=== PATIENT | female | born 1995 | race American Indian/Alaskan Native ===

== ENCOUNTER 2018-08-13 18:38 | Emergency (ER) | payer SELFPAY ==
[2018-08-13 19:32] LABS: Bilirubin,Urine NEG (Negative); Blood,Urine NEG (Negative); Color,Urine Yellow (Yellow); Mucus,Urine FEW /HPF; Protein,Urine <15 mg/dL mg/dL (Negative); Urobilinogen,Urine < 2.0 mg/dL (<2.0); WBC,Urine < 1.0 /HPF (0.0-6.0)
[2018-08-13 19:47] LABS: HCG Qualitative,Urine Positive (Negative)
[2018-08-13 20:26] LABS: Basophils % (Auto) 0.5 % (0.0-1.8); Eosinophils # (Auto) 0.2 K/mm3 (0.0-0.4); Eosinophils % (Auto) 2.4 % (0.0-4.3); Hematocrit 42.4 % (30.3-42.9); Hemoglobin 14.3 gm/dl (10.1-14.3); Lymphocytes # (Auto) 3.9 K/mm3 (1.2-5.4); Lymphocytes % (Auto) 40.1 % (13.4-35.0); Mean Corpuscular HGB Conc 34 % (30-34); Mean Corpuscular Hemoglobin 30 pg (28-32); Mean Corpuscular Volume 88 fl (79-97); Platelet Count 227 K/mm3 (140-440); Red Blood Count 4.82 M/mm3 (3.65-5.03); Red Cell Distribution Width 13.6 % (13.2-15.2)
--- NOTE | 2018-08-13 20:34 | Emergency Department Report ---
HPI - General Chief Complaint: Abdominal Pain Time Seen by Provider: 08/13/18 19:58 - HPI HPI: 22-year-old female presents to the emergency department with complaint of a three-day history of some abdominal discomfort around the belly button that sometimes moves up towards the epigastrium. She denies any nausea, vomiting, fever, diarrhea, vaginal bleeding or discharge, dysuria. Patient also says that she has had some intermittent mild headaches and some breast sensitivity over this time. She has concern that she could be as she had her implant removed in May and since that time her periods have been irregular. The patient has a primary care physician and [facility] back in [place], where she is from, and she returns home next month. If she is , she will be . She has not taken anything for her symptoms prior to presentation. She denies any tobacco or illicit drug use or abuse. ED Past Medical Hx - Past Medical History Previous Medical History?: No - Surgical History Past Surgical History?: No - Social History Smoking Status: Never Smoker Substance Use Type: None - Medications Home Medications: Home Medications Medication Instructions Recorded Confirmed Last Taken Type Vit-Fe Fumar-FA [ 1 tab PO QDAY #30 tablet 08/13/18 Unknown Rx Vitamin] ED Review of Systems ROS: Stated complaint: ABDOMINAL/CHEST PAINS Other details as noted in HPI Comment: All other systems reviewed and negative Constitutional: denies: chills, fever Eyes: denies: eye pain, eye discharge, vision change ENT: denies: ear pain, throat pain Respiratory: denies: cough, shortness of breath, wheezing Cardiovascular: denies: palpitations, edema Gastrointestinal: abdominal pain. denies: vomiting, diarrhea Genitourinary: denies: urgency, dysuria, discharge Musculoskeletal: denies: back pain, joint swelling, arthralgia Skin: denies: rash, lesions Neurological: headache. denies: numbness Physical Exam - Physical Exam Vital Signs: Vital Signs 08/13/18 08/13/18 08/13/18 18:46 20:10 20:12 Temperature 99.3 F 98.8 F Pulse Rate 94 H 78 Respiratory 16 20 20 Rate Blood Pressure 138/83 Blood Pressure 119/75 [Right] O2 Sat by Pulse 100 100 100 Oximetry Physical Exam: GENERAL: The patient is well-developed well-nourished. HENT: Normocephalic. Atraumatic. Patient has moist mucous membranes. EYES: Extraocular motions are intact. Pupils equal reactive to light bilaterally. NECK: Supple. Trachea is midline. CHEST/LUNGS: Clear to auscultation. There is no respiratory distress noted. HEART/CARDIOVASCULAR: Regular. There is no tachycardia. There is no murmur. ABDOMEN: Abdomen is soft. Mild lower abdominal tenderness to palpation. No guarding. Patient has normal bowel sounds. There is no abdominal distention. SKIN: Skin is warm and dry. NEURO: The patient is awake, alert, and oriented. The patient is cooperative. The patient has no focal neurologic deficits. The patient has normal speech. MUSCULOSKELETAL: There is no tenderness or deformity. There is no limitation range of motion. There is no evidence of acute injury. ED Course Vital Signs 08/13/18 08/13/18 08/13/18 18:46 20:10 20:12 Temperature 99.3 F 98.8 F Pulse Rate 94 H 78 Respiratory 16 20 20 Rate Blood Pressure 138/83 Blood Pressure 119/75 [Right] O2 Sat by Pulse 100 100 100 Oximetry ED Medical Decision Making - Lab Data Result diagrams: 08/13/18 20:09 08/13/18 20:12 - Radiology Data Radiology results: report reviewed Transvaginal/obstetric ultrasound was read by radiology as an impression of a probable normal early intrauterine gestation at 5 weeks and 4 days. At this time, no pole or cardiac activity is detectable. Follow-up is recommended. - Medical Decision Making Patient presented with a few days of some lower abdominal pain. No vaginal bleeding, discharge, dysuria. Vital signs stable throughout her ED course. Patient had a suspicion that she could be as her implantable contraception was taken out a few months ago and she has had irregular periods since. The patient was in fact found to be on a qualitative urine test. I sent a quantitative beta hCG that came back about 7500. The rest of the patient's labs was unremarkable. A pelvic/prostatic ultrasound was done and came back showing a probable normal early intrauterine gestation at 5 weeks and 4 days but there was no detectable cardiac activity or pole at this time. I discussed all of the labs and imaging results with the patient. She was given referrals for [facility]. However if she is unable to get in there within a few days, she will return to the emergency department for a repeat hormone level and potentially a repeat ultrasound. She understands that if the beta hCG is decreasing, then this may be a sign of a potential miscarriage. If the hormone level is increasing, we can get a repeat ultrasound to see if there is a pole or cardiac activity and that the is progressing. She was started on vitamins. She will use Tylenol as necessary for discomfort. She understands not to use any other medications that are not improved or prescribed by a physician while she is . - Differential Diagnosis , UTI, miscarriage, fibroids, colitis Critical Care Time: No Critical care attestation.: If time is entered above; I have spent that time in minutes in the direct care of this critically ill patient, excluding procedure time. ED Disposition Clinical Impression: Abdominal pain Qualifiers: Abdominal location: generalized Qualified Code(s): R10.84 - Generalized abdominal pain Qualifiers: Weeks of gestation: less than 8 weeks Qualified Code(s): Z3A.01 - Less than 8 weeks gestation of Disposition: TO HOME OR SELFCARE Is pt being admited?: No Condition: Stable Instructions: (ED), Abdominal Pain (ED) Additional Instructions: Please follow up with an [facility] service or return to the emergency department in 2-3 days for a repeat hormone level and possibly a repeat ultrasound. Until that time, I am starting you on a vitamin. You can take Tylenol every 4 hours, using weight-based dosing, as needed for any fever or discomfort. Otherwise avoid any other medications that are not prescribed by a physician. Return to the emergency department sooner with any worsening of your symptoms, development of vaginal bleeding, or if any acute distress. Prescriptions: Vit-Fe Fumar-FA [ Vitamin] 1 tab PO QDAY #30 tablet Referrals: [facility] [Provider Group] - 2-3 Days [facility] [Provider Group] - 2-3 Days [facility] [Provider Group] - 2-3 Days Time of Disposition: 23:47
[2018-08-13 20:52] LABS: Alanine Aminotransferase 9 units/L (7-56); Albumin 4.2 g/dL (3.9-5); BUN/Creatinine Ratio 8; Blood Urea Nitrogen 5 mg/dL (7-17); Calcium 8.6 mg/dL (8.4-10.2); Hemolysis Index 7; Lipase 18 units/L (13-60)
--- NOTE | 2018-08-13 22:45 | Ultrasound Report ---
FINAL REPORT PROCEDURE: US OB < = 14 WEEKS FETUS TECHNIQUE: Real-time transabdominal sonography of the uterus, placenta, amniotic fluid, adnexa, and fetus was performed with image documentation. Measurements were obtained to determine age/size. M-mode Doppler was used to document heartbeat. CPT 65663 HISTORY: abd pain, preg COMPARISON: No prior studies are available for comparison. FINDINGS: There is an intrauterine gestational sac and yolk sac. No pole or cardiac activity is detected. Mean sac diameter is 8 millimeters correspond to estimated gestational age of 5 weeks and 4 days. Amniotic fluid: Normal. Cervix: Normal. Right Ovary: Normal. Left Ovary: Normal. Estimated delivery date: 04/11/2019 Uterus and adnexa: Normal. IMPRESSION: Probable normal early intrauterine gestation at 5 weeks and 4 days. At this time, no pole or cardiac activity is detectable. Followup is recommended.
--- NOTE | 2018-08-13 22:46 | Ultrasound Report ---
FINAL REPORT PROCEDURE: US OB TRANSVAGINAL TECHNIQUE: Real-time transvaginal sonography of the uterus, placenta, amniotic fluid, adnexa, and fetus was performed with image documentation. Measurements were obtained to determine age/size. M-mode Doppler was used to document heartbeat. HISTORY: abd pain, preg COMPARISON: No prior studies are available for comparison. FINDINGS: There is an intrauterine gestational sac and yolk sac. No pole or cardiac activity is detected. Mean sac diameter is 8 millimeters correspond to estimated gestational age of 5 weeks and 4 days. Amniotic fluid: Normal. Cervix: Normal. Right Ovary: Normal. Left Ovary: Normal. Estimated delivery date: 04/11/2019 Uterus and adnexa: Normal. IMPRESSION: Probable normal early intrauterine gestation at 5 weeks and 4 days. At this time, no pole or cardiac activity is detectable. Followup is recommended.
[2018-08-14 00:01] VITALS: BP 120/70
== END 2018-08-14 00:03 | disposition home or self-care (01) ==
LOC: ED 18:38
DX: O26.891 Other specified pregnancy related conditions, first trimester (principal); R10.84 Generalized abdominal pain; R51 Headache; Z3A.01 Less than 8 weeks gestation of pregnancy
CPT/HCPCS: 36415; 76801; 76817; 80053; 81001; 81025; 83690; 84484; 84702; 85025